=== PATIENT | female | born 2000 | race Caucasian/White ===

== ENCOUNTER 2021-10-14 14:59 | Emergency (ER) | payer OTHER ==
[~2021-10-14] VITALS: Ht 175.3 cm; Wt 69.9 kg
--- NOTE | 2021-10-14 15:19 | NUR ---
called pt name in lobby no answer at this time
[2021-10-14 15:35] VITALS: BP 136/71
--- NOTE | 2021-10-14 15:40 | NUR ---
21 Y/O FEMALE C/O MIGRAINE, SHAKINESS, BACK AND CHEST PAIN, AND NAUSEA X1 WEEK. PT ALSO REPORTS DIZZYNESS AND LIGHTHEADEDNESS. PT REPORTS FEELING ANXIOUS, STATED HR WAS 170S LAST WEEK, HR 146 NOW. LMP 08/21/21. PT DENIES DRUG USE. DENIES TAKING ANYTHING FOR PAIN. PT DENIES VOMITING/DIARRHA. PT A/O X4 WITH EVEN AND UNLABORED RESPIRATIONS. PPMH:ANEMIA, SUPERFICIAL BONE IN CHEST NKDA
--- NOTE | 2021-10-14 15:41 | NUR ---
Pt taken to bed 6.
--- NOTE | 2021-10-14 15:45 | NUR ---
DR ESPAÑA AT BEDSIDE EVALUATING PT
[2021-10-14] MEDS ORDERED: NACL 0.9% 1,000 ML IV ONE (15:50)
--- NOTE | 2021-10-14 16:20 | NUR ---
21 G IV ESTABLISHED TO L FOREARM, BLOOD SAMPLES COLLECTED VIA IV AND HANDED TO GAS SINGER
[2021-10-14 16:30] LABS: BARBITURATE, URINE NEGATIVE ng/ml (NEG <=200); BENZODIAZEPINE, URINE NEGATIVE ng/mL (NEG <=200); CANNABINOID, URINE NEGATIVE ng/mL (NEG <=50); COCAINE, URINE NEGATIVE ng/mL (NEG <=300); OPIATE, URINE NEGATIVE ng/mL (NEG <=2000); PHENCYCLIDINE SCREEN,URINE NEGATIVE ng/mL (NEG <=25)
[2021-10-14 16:44] LABS: BASOPHILS # (AUTO) 0.1 K/uL (0.00-0.22); BASOPHILS % (AUTO) 0.4 % (0.0-2.0); EOSINOPHILS % (AUTO) 0.2 % (0.0-4.0); HEMATOCRIT 31.9 % (36-48); HEMOGLOBIN 10.2 g/dL (12.0-16.0); LYMPHOCYTES # (AUTO) 0.6 K/uL (2.5-16.5); LYMPHOCYTES % (AUTO) 4.7 % (20.5-51.1); MEAN CORPUSCULAR HEMOGLOBIN 18 pg (27-31); MEAN CORPUSCULAR HGB CONC 32 g/dL (33-37); MEAN CORPUSCULAR VOLUME 56.8 fL (80-94); MONOCYTES # (AUTO) 0.7 K/uL (0.8-1.0); MONOCYTES % (AUTO) 5.1 % (1.7-9.3); NEUTROPHILS # (AUTO) 11.5 K/uL (1.8-7.7); NEUTROPHILS % (AUTO) 89.6 % (42.2-75.2); PLATELET COUNT (AUTO) 164 K/uL (140-450); RED BLOOD CELL COUNT(AUTO) 5.62 MIL/uL (4.20-5.40); RED CELL DISTRIBUTION WIDTH 15.1 % (11.6-13.7); WHITE BLOOD COUNT (AUTO) 12.8 K/uL (4.5-11.0)
[2021-10-14 16:54] LABS: ANION GAP 12.7 (8-16); CREATININE 0.6 mg/dL (0.6-1.3); POTASSIUM 3.7 mmol/L (3.5-5.1)
--- NOTE | 2021-10-14 18:01 | NUR ---
PT RESTING IN BED WITH EVEN AND UNLABORED RESPIRATIONS, HR IS DECREASING. VSS. WILL CONTINUE TO MONITOR
[2021-10-14] MEDS ORDERED: LORazepam 2 MG/ML VIAL IVP ONE (18:40)
[2021-10-14 19:35] VITALS: BP 112/61
--- NOTE | 2021-10-14 19:35 | NUR ---
Patient discharged with v/s stable. Written and verbal after care instructions given and explained. Patient verbalized understanding. Ambulatory with to car. All questions addressed prior to discharge. Advised to follow up with PMD.
== END 2021-10-14 19:35 | disposition home or self-care (01) ==
LOC: MED 14:59
DX: R07.9 Chest pain, unspecified (principal); R00.2 Palpitations; I10 Essential (primary) hypertension
CPT/HCPCS: 36415; 71046; 71275; 80048; 80305; 81002; 81025; 84484; 85025; 85379; 96361; 96374; 99285; J2060; J7030; Q9967